=== PATIENT | male | born 1985 ===

== ENCOUNTER 2017-09-07 08:01 | Emergency (ER) | payer BC, OTHER ==
[2017-09-07 08:05] VITALS: RESP 18
--- NOTE | 2017-09-07 08:30 | C.PDOC ---
History Of Present Illness 32 yo male, no prior hx, presents with rash to back and chest x 2 days. pt states came on w/o inciting factor. no fevers new lotions creams detergents. pt states rash is mildy puritic. Time Seen by Provider: 09/07/17 08:20 Chief Complaint (Nursing): Abnormal Skin Integrity Past Medical History Reviewed: Historical Data, Nursing Documentation, Vital Signs Vital Signs: Last Vital Signs Temp 97.4 F L 09/07/17 08:03 Pulse 67 09/07/17 08:03 Resp 18 09/07/17 08:03 BP 143/85 09/07/17 08:03 Pulse Ox 98 09/07/17 08:36 Family History: States: Unknown Family Hx - Social History Hx Alcohol Use: Yes Hx Substance Use: No Review Of Systems Except As Marked, All Systems Reviewed And Found Negative. Skin: Positive for: Rash Physical Exam - Physical Exam Appears: Well, No Acute Distress Skin: Normal Color, Warm, Dry, Rash (diffuse maculopapular rash, 1-2 cm, some scaly appearing) Eye(s): bilateral: Normal Inspection, PERRL, EOMI Nose: Normal Throat: Normal Neck: Normal Cardiovascular: Rhythm Regular Respiratory: Normal Breath Sounds Gastrointestinal/Abdominal: Normal Exam Back: Normal Inspection Extremity: Normal ROM ED Course And Treatment O2 Sat by Pulse Oximetry: 98 Medical Decision Making Medical Decision Making: suspect pityriasis vs allergic rxn vs other rash. pt well appearing. will treat supportively. well appearing on phone in nad. Disposition - Disposition Referrals: [facility] [Outside] [facility] [Outside] Brenna Khan MD [Non-Staff] - Disposition: HOME/ ROUTINE Disposition Time: 08:33 Condition: STABLE Additional Instructions: please see specialist. return to er with worsening symptoms or concerns. Prescriptions: DiphenhydrAMINE [Benadryl] 25 mg PO Q4 PRN #20 cap PRN Reason: Itching / Pruritus Triamcinolone 0.1% [Triamcinolone 0.1% Cream] 0.1 apful TP BID #1 tube Instructions: Acute Rash (ED), Allergies (ED), Pityriasis rosea (ED) Forms: [employer] (Yakut) - Clinical Impression Clinical Impression: Rash, Pityriasis in adult
[2017-09-07 08:56] VITALS: BP 141/82; PULSE 72; TEMP 98; O2SAT 100
== END 2017-09-07 08:56 | disposition home or self-care (01) ==
LOC: C.ER 08:01
DX: R21 Rash and other nonspecific skin eruption (principal); L42 Pityriasis rosea